=== PATIENT | female | born 1980 | race Caucasian/White ===

== ENCOUNTER 2017-07-17 19:28 | Emergency (ER) | payer OTHER ==
[2017-07-18] MEDS ORDERED: LIDOCAINE 5% (700 MG) TRANSDERMAL ADH..PATCH TP ONE (00:23)
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
[2017-07-18 01:00] VITALS: BP 122/76
== END 2017-07-18 01:00 | disposition home or self-care (01) ==
LOC: ER 19:28
DX: S46.812A Strain of other muscles, fascia and tendons at shoulder and upper arm level, left arm, initial encounter (principal); M54.2 Cervicalgia; V47.5XXA Car driver injured in collision with fixed or stationary object in traffic accident, initial encounter; Z98.51 Tubal ligation status
CPT/HCPCS: 99283